=== PATIENT | male | born 1985 | race Caucasian/White ===

== ENCOUNTER 2020-07-13 13:28 | Inpatient (IN) | payer MEDICAID, SELFPAY ==
[2020-07-13 13:34] VITALS: BP 130/72; PULSE 109; RESP 18; TEMP 36.7; O2SAT 96; BMI 32.8
[2020-07-13 14:08] VITALS: BP 125/98; PULSE 120; RESP 18; TEMP 36.8; O2SAT 97
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
[2020-07-13 14:37] LABS: Basophils # 0.1 10^3/uL (0.0-0.1); Basophils % 1.2 %; Eosinophils # 0.2 10^3/uL (0.0-0.8); Eosinophils % 2.8 %; Hematocrit 52.4 % (42.0-52.0); Hemoglobin 17.4 g/dL (11.7-16.6); Lymphocytes # 1.9 10^3/uL (0.8-4.8); Lymphocytes % 24.8 %; Mean Corpuscular HGB Conc 33.2 g/dL (30.0-36.0); Mean Corpuscular Hemoglobin 29.5 pg (28.0-34.0); Mean Platelet Volume 8.5 fL (7.4-10.4); Monocytes # 0.7 10^3/uL (0.2-0.9); Monocytes % 9.8 %; Neutrophils # 4.56 10^3/uL (1.8-7.7); Nucleated Red Blood Cells % 0 %; Platelet Count 265 10^3/cmm (130-400); Red Blood Count 5.89 10^6/uL (4.1-5.3); Red Cell Distribution Width 12.6 % (12.1-15.1); White Blood Count 7.5 10^3/uL (4.0-10.0)
[2020-07-13 14:57] LABS: Alcohol Level 78 mg/dL (0-10); Anion Gap 16.9 (5-19); Blood Urea Nitrogen 8 mg/dL (6-20); Calcium 9.2 mg/dL (8.5-10.5); Carbon Dioxide 23 mmol/L (22-29); Chloride 104 mmol/L (98-107); Glomerular Filtration Rate 111.3 mL/min (90-130); Glucose 102 mg/dL (65-115); Osmolality Calculated 289 mOsm/kg (285-295); Potassium 3.9 mmol/L (3.5-5.1); Sodium 140 mmol/L (136-145)
[2020-07-13 14:59] LABS: Acetaminophen < 5.0 ug/mL (10-30); Salicylate < 0.3 mg/dL (3-10)
[2020-07-13 15:31] LABS: Add Urine Microscopic? NO
[2020-07-13 15:39] LABS: Bilirubin Urine 1+ (Negative); Blood Urine Neg (Negative); Glucose Urine UA Norm (Normal); Ketones Urine 1+ (Negative); Leukocyte Esterase Urine Negative (Negative); Nitrate Urine Negative (Negative); Protein Urine Neg (Negative); Urine Appearance Clear (CLEAR); Urine Color Yellow (Yellow); Urobilinogen Urine 1 mg/dL (Negative); pH Urine 5 (5-7)
[2020-07-13 15:42] VITALS: BP 114/80; PULSE 85; RESP 18; O2SAT 96
[2020-07-13 15:43] VITALS: BP 123/75; PULSE 91; RESP 18; TEMP 36.7; O2SAT 98
[2020-07-13 15:50] LABS: Amphetamines Screen Urine Negative (Negative); Barbiturates Screen Urine Negative (Negative); Benzodiazepines Screen Urine Negative (Negative); Cocaine Screen Urine Negative (Negative); Opiate Screen Urine Negative (Negative); PCP Screen Urine Negative (Negative); THC Screen Urine Positive (Negative)
[2020-07-13] MEDS: hyDROXYzine 25 mg Capsule 50 MG PO (20:35)
[2020-07-13] MEDS: trazodone 50 mg Tablet PO (20:35)
--- NOTE | 2020-07-13 21:52 | NUR.SHIFT ---
ON ASSESSMENT: BILATERAL LUNGS THROUGHOUT ARE CLEAR, HEART SOUNDS ARE NORMAL S1 & S2, BOWEL SOUNDS PRESENT IN ALL FOUR QUADRANTS, AT THE BEGINNING OF SHIFT THE PATIENT WAS IN HIS ROOM SLEEPING BUT HE CAME OUT OF HIS ROOM FOR A SNACK AND RETURNED TO BED.
[2020-07-13 21:57] VITALS: BP 102/62; PULSE 72; RESP 18; TEMP 36.4; O2SAT 96
[2020-07-14 06:00] VITALS: BP 112/63; PULSE 76; RESP 16; TEMP 36.6; O2SAT 97
[2020-07-14] MEDS: thiamine 100 mg Tablet PO (07:55)
[2020-07-14] MEDS: multivitamin therapeutic Tablet 1 TAB PO (07:55)
[2020-07-14] MEDS: folic acid 1 mg Tablet PO (07:55)
[2020-07-14] MEDS: nicotine 2 mg Gum BUCCAL ×4 (09:23→20:22)
[2020-07-14 13:11] VITALS: BP 127/82; PULSE 90; RESP 18; TEMP 37.1; O2SAT 98
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
[2020-07-14] MEDS: trazodone 50 mg Tablet PO (20:10)
[2020-07-14] MEDS: hyDROXYzine 25 mg Capsule 50 MG PO (20:10)
[2020-07-14 21:03] VITALS: BP 123/86; PULSE 79; RESP 22; TEMP 37.1; O2SAT 98
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
[2020-07-15 06:00] VITALS: BP 119/83; PULSE 76; RESP 18; TEMP 36.7; O2SAT 95
[2020-07-15] MEDS: nicotine 2 mg Gum BUCCAL ×5 (09:22→22:04)
[2020-07-15] MEDS: gabapentin 100 mg Capsule PO ×3 (09:55→21:31)
[2020-07-15] MEDS: thiamine 100 mg Tablet PO (09:55)
[2020-07-15] MEDS: multivitamin therapeutic Tablet 1 TAB PO (09:55)
[2020-07-15] MEDS: folic acid 1 mg Tablet PO (09:55)
--- NOTE | 2020-07-15 13:18 | PM.NPN ---
Subjective NPU Subjective: Interval history: Arvind presented today reporting that he was doing okay. We discussed getting PT involved in his treatment to see if there are any things they can recommend for him to do that he could even do at home to advance the situation. Additionally he was continuing to be agreeable with restarting his medication given that we were able to identify what they were. We discussed the risk benefits and alternatives of restarting his Zyprexa at 10 mg at the 50 mg along previously and he understood and agreed to proceed as is documented in this note. He reports that he is eating okay but sleep is still tough. Mental Status Exam MSE Comments: This is an obese white male with adequate dress grooming and eye contact. No abnormal movements except for mild psychomotor retardation. Cooperative with exam in mild distress. Speech was decreased rate and volume. Mood described as still depressed and anxious: Affect congruent. Thought process organized. Thought content: Patient denied suicidal or homicidal ideation, there were no delusions reported or noted, he denied any auditory or visual hallucinations. Attention and concentration were intact and memory was mostly reliable but none were formally tested. He is alert and oriented x3. Insight and judgment appear fair. Vitals/I&O/Wt Last Vital Signs Temp 98.5 F 07/15/20 20:26 Pulse 76 07/15/20 20:26 Resp 20 H 07/15/20 20:26 BP 118/76 07/15/20 20:26 Pulse Ox 96 07/15/20 20:26 Data NPU : 07/13/20 14:25 07/13/20 14:25 A&P Additional A&P Information (1) TBI (traumatic brain injury): (2) Depression: (3) Impulse control disorder, unspecified: (4) Suicidal ideation: (5) Alcohol use disorder: This is a 35-year-old white male with depression and impulse control issues with a recent TBI with significant sequela who presents off of his medication but open to having his medications restarted. 1. Continue current medication. Except restart his previous medications including Zyprexa 10 mg p.o. nightly. We also discussed the risk benefits and alternatives of starting ReVia 50 mg p.o. daily and he understood and agreed to proceed as is documented in this note. 2. Continue every 15 minute checks for safety. 3. Encourage individual complement therapy. 4. Encourage sober living treatment at the highest level of care to which he is willing to commit. 5. Initiate PT consult. Involuntary Hold Information 96 Hour Hold: 96 Hour Involuntary Admission: No Attestations NPU Medical Necessity Statement*: Inpatient hospitalization is medically necessary and the clinically appropriate intervention at this time. We will monitor medications and make changes as indicated. Likely length of stay 2-4 days. 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
[2020-07-15] MEDS: naltrexone hcl 50 mg Tablet PO (13:59)
[2020-07-15 14:00] VITALS: BP 120/67; PULSE 75; RESP 20; TEMP 36.5; O2SAT 97
[2020-07-15 20:26] VITALS: BP 118/76; PULSE 76; RESP 20; TEMP 36.9; O2SAT 96
[2020-07-15] MEDS: OLANZapine 10 mg TABLET PO (21:30)
[2020-07-15] MEDS: hyDROXYzine 25 mg Capsule 50 MG PO (21:30)
--- NOTE | 2020-07-16 03:48 | NUR.SHIFT ---
Patient is depressed today. He says that his stomach feels bloated and that he is on the verge of shaking. He is craving alcohol and fears that he will relapse. He stated that he is withdrawing still from the alcohol. He says the voices in his head sound like they are arguing loudly. He has been having headaches and when he has thoughts that wont stop or a thought to do something that the voices answer his own internal thoughts. He asked for trazodone to help him sleep tonight, visteril, and zyprexa to help with his anxiety. He has been resting soundly since he received medication.
[2020-07-16 06:00] VITALS: BP 103/67; PULSE 97; RESP 17; TEMP 36.6; O2SAT 61
[2020-07-16] MEDS: folic acid 1 mg Tablet PO (09:56)
[2020-07-16] MEDS: gabapentin 100 mg Capsule PO ×3 (09:56→20:54)
[2020-07-16] MEDS: thiamine 100 mg Tablet PO (09:56)
[2020-07-16] MEDS: multivitamin therapeutic Tablet 1 TAB PO (09:56)
[2020-07-16] MEDS: naltrexone hcl 50 mg Tablet PO (09:56)
--- NOTE | 2020-07-16 10:30 | P.PN_ITS ---
Subjective NPU Subjective: Interval history: Arvind presented today reporting that he feels a little better but that he is still depressed. We reviewed what antidepressants he is tried in the past and he endorsed only having Prozac and Effexor with limited benefit. We discussed the risk benefits and alternatives of a trial of Paxil and he understood and agreed to proceed as documented in th is note. He endorsed a desire to get well enough to get back to work and that he has a place to go upon discharge. He reports that he is eating okay and sleeping a little better. Mental Status Exam MSE Comments: This is an obese white male with adequate dress grooming and eye contact. No abnormal movements except for mild psychomotor retardation. Cooperative with exam in mild distress. Speech was decreased rate and volume. Mood described as still depressed: Affect congruent. Thought process organized. Thought content: Patient denied suicidal or homicidal ideation, there were no delusions reported or noted, he denied any auditory or visual hallucinations. Attention and concentration were intact and memory was mostly reliable but none were formally tested. He is alert and oriented x3. Insight and judgment appear fair. Vitals/I&O/Wt Last Vital Signs Temp 97.8 F 07/16/20 06:00 Pulse 97 07/16/20 06:00 Resp 17 07/16/20 06:00 BP 103/67 07/16/20 06:00 Pulse Ox 61 L 07/16/20 06:00 Data NPU : 07/13/20 14:25 07/13/20 14:25 A&P Additional A&P Information (1) TBI (traumatic brain injury): (2) Depression: (3) Impulse control disorder, unspecified: (4) Suicidal ideation: (5) Alcohol use disorder: This is a 35-year-old white male with depression and impulse control issues with a recent TBI with significant sequela who presents off of his medication but open to having his medications restarted. 1. Continue current medication. Except: Increasing the Zyprexa to 15 mg p.o. nightly and starting Paxil 20 mg p.o. every morning. 2. Continue every 15 minute checks for safety. 3. Encourage individual complement therapy. 4. Encourage sober living treatment at the highest level of care to which he is willing to commit. 5. Appreciate the OT consult and recommendations. Involuntary Hold Information 96 Hour Hold: 96 Hour Involuntary Admission: No Attestations NPU Medical Necessity Statement*: Inpatient hospitalization is medically necessary and the clinically appropriate intervention at this time. We will monitor medications and make changes as indicated. Likely length of stay 1-3 days. 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
[2020-07-16] MEDS: nicotine 2 mg Gum BUCCAL ×2 (11:07→16:37)
[2020-07-16 14:00] VITALS: BP 136/80; PULSE 78; RESP 16; TEMP 36.7; O2SAT 98
[2020-07-16] MEDS: PARoxetine 20 mg Tablet PO (14:57)
[2020-07-16] MEDS: hyDROXYzine 25 mg Capsule 50 MG PO (20:53)
[2020-07-16] MEDS: ondansetron 4 MG Tablet PO (20:54)
[2020-07-16] MEDS: OLANZapine 10 mg TABLET 15 MG PO (20:55)
[2020-07-16 21:11] VITALS: BP 119/80; PULSE 61; RESP 18; TEMP 36.3; O2SAT 94
[2020-07-17 06:00] VITALS: BP 139/70; PULSE 66; RESP 16; TEMP 36.3
[2020-07-17] MEDS: gabapentin 100 mg Capsule PO ×3 (08:23→21:23)
[2020-07-17] MEDS: multivitamin therapeutic Tablet 1 TAB PO (08:23)
[2020-07-17] MEDS: thiamine 100 mg Tablet PO (08:23)
[2020-07-17] MEDS: naltrexone hcl 50 mg Tablet PO (08:23)
[2020-07-17] MEDS: PARoxetine 20 mg Tablet PO (08:23)
[2020-07-17] MEDS: folic acid 1 mg Tablet PO (08:23)
[2020-07-17] MEDS: nicotine 2 mg Gum BUCCAL ×2 (10:22→18:08)
--- NOTE | 2020-07-17 10:41 | P.PN_ITS ---
Subjective NPU Subjective: Interval history: Wood presents today reporting that things are going a little better each day. We discussed his depression which he says is a little better. He endorsed having some struggles with constipation and we discussed the risk benefits and alternatives of initiating Colace and he understood and agreed to proceed as is documented in his note. We also di scussed the possibility of discharge in the next 48 hours. Mental Status Exam MSE Comments: This is an obese white male with adequate dress grooming and eye contact. No abnormal movements except for mild psychomotor retardation. Cooperative with exam in mild distress. Speech was decreased rate and volume. Mood described as little better: Affect congruent. Thought process organized. Thought content: Patient denied suicidal or homicidal ideation, there were no delusions reported or noted, he denied any auditory or visual hallucinations. Attention and concentration were intact and memory was mostly reliable but none were formally tested. He is alert and oriented x3. Insight and judgment appear fair. Vitals/I&O/Wt Last Vital Signs Temp 98.3 F 07/17/20 22:00 Pulse 76 07/17/20 22:00 Resp 18 07/17/20 22:00 BP 121/72 07/17/20 22:00 Pulse Ox 97 07/17/20 22:00 Data NPU : 07/13/20 14:25 07/13/20 14:25 A&P Additional A&P Information (1) TBI (traumatic brain injury): (2) Depression: (3) Impulse control disorder, unspecified: (4) Suicidal ideation: (5) Alcohol use disorder: This is a 35-year-old white male with depression and impulse control issues with a recent TBI with significant sequela who presents off of his medication but open to having his medications restarted. 1. Continue current medication. Start Colace 100 mg p.o. daily. 2. Continue every 15 minute checks for safety. 3. Encourage individual complement therapy. 4. Encourage sober living treatment at the highest level of care to which he is willing to commit. 5. Appreciate the OT consult and recommendations. Involuntary Hold Information 96 Hour Hold: 96 Hour Involuntary Admission: No Attestations NPU Medical Necessity Statement*: Inpatient hospitalization is medically necessary and the clinically appropriate intervention at this time. We will monitor medications and make changes as indicated. Likely length of stay 1-3 days. 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
[2020-07-17 14:00] VITALS: BP 123/68; PULSE 80; RESP 16; TEMP 36.9; O2SAT 95
[2020-07-17] MEDS: hyDROXYzine 25 mg Capsule 50 MG PO (21:23)
[2020-07-17] MEDS: OLANZapine 10 mg TABLET 15 MG PO (21:23)
[2020-07-17 22:00] VITALS: BP 121/72; PULSE 76; RESP 18; TEMP 36.8; O2SAT 97
[2020-07-17] MEDS: acetaminophen 325 mg Tablet 650 MG PO (22:20)
[2020-07-17] MEDS: benzocaine 20% 7 gm 1 APPLIC MUCOUS MEM (23:02)
--- NOTE | 2020-07-17 23:27 | PC.NURSE ---
Addendum entered by Jayy Espinoza LPN 07/17/20 23:29: LATE ENTRY PRN FOLLOW-UP @ 0573 MEDICATION NOT EFFECTIVE. PT CONTINUES TO HAVE C/O ANXIETY. REFUSED ADDITIONAL MEDICATION. WILL CONTINUE TO MONITOR. Original Note: PRN VISTARIL ADMINISTERED VISTARIL 50MG PO FOR PT CO INCREASING ANXIETY. WILL MONITOR FOR MEDICATION EFFECTIVENESS.
[2020-07-18 06:00] VITALS: BP 134/72; PULSE 86; RESP 17; TEMP 36.5; O2SAT 99
[2020-07-18] MEDS: multivitamin therapeutic Tablet 1 TAB PO (08:40)
[2020-07-18] MEDS: docusate sodium 100 mg Capsule PO (08:40)
[2020-07-18] MEDS: naltrexone hcl 50 mg Tablet PO (08:40)
[2020-07-18] MEDS: gabapentin 100 mg Capsule PO ×3 (08:40→20:47)
[2020-07-18] MEDS: thiamine 100 mg Tablet PO (08:40)
[2020-07-18] MEDS: folic acid 1 mg Tablet PO (08:40)
[2020-07-18] MEDS: PARoxetine 20 mg Tablet PO (08:40)
--- NOTE | 2020-07-18 09:10 | PM.NPN ---
Subjective NPU Subjective: Interval history: Wood presents today reporting that he is feeling little better each day. We discussed the importance of coming connected with services. We discussed risks cuts and alternatives of him being discharged on Monday morning and he understood and agreed as documented in his note. He reports that he is tolerating the medications without incident and feeling a little better overall. Mental Status Exam MSE Comments: This is an obese white male with adequate dress grooming and eye contact. No abnormal movements except for mild psychomotor retardation. Cooperative with exam in no acute distress. Speech was normal rate and decreased volume. Mood described as okay: Affect congruent. Thought process organized. Thought content: Patient denied suicidal or homicidal ideation, there were no delusions reported or noted, he denied any auditory or visual hallucinations. Attention and concentration were intact and memory was mostly reliable but none were formally tested. He is alert and oriented x3. Insight and judgment appear fair. Vitals/I&O/Wt Last Vital Signs Temp 98.8 F 07/18/20 21:04 Pulse 97 07/18/20 21:04 Resp 18 07/18/20 21:04 BP 138/93 07/18/20 21:04 Pulse Ox 97 07/18/20 21:04 Weight last 48 hrs Weight 74.843 kg Data NPU : 07/13/20 14:25 07/13/20 14:25 A&P Additional A&P Information (1) TBI (traumatic brain injury): (2) Depression: (3) Impulse control disorder, unspecified: (4) Suicidal ideation: (5) Alcohol use disorder: This is a 35-year-old white male with depression and impulse control issues with a recent TBI with significant sequela who presents off of his medication but open to having his medications restarted. 1. Continue current medication. 2. Continue every 15 minute checks for safety. 3. Encourage individual complement therapy. 4. Encourage sober living treatment at the highest level of care to which he is willing to commit. 5. Appreciate the OT consult and recommendations. Involuntary Hold Information 96 Hour Hold: 96 Hour Involuntary Admission: No Attestations NPU Medical Necessity Statement*: Inpatient hospitalization is medically necessary and the clinically appropriate intervention at this time. We will monitor medications and make changes as indicated. Likely length of stay 1-3 days. 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
[2020-07-18] MEDS: nicotine 2 mg Gum BUCCAL ×3 (11:55→20:47)
[2020-07-18 14:00] VITALS: BP 104/73; PULSE 86; RESP 18; TEMP 37.4
[2020-07-18] MEDS: benzocaine 20% 7 gm 1 APPLIC MUCOUS MEM ×2 (17:04→20:51)
[2020-07-18] MEDS: OLANZapine 10 mg TABLET 15 MG PO (20:48)
[2020-07-18] MEDS: hyDROXYzine 25 mg Capsule 50 MG PO (20:49)
--- NOTE | 2020-07-18 20:49 | PC.NURSE ---
Addendum entered by Jayy Espinoza LPN 07/19/20 00:46: LATE ENTRY PRN MEDICATION EFFECTIVE/ PT RESTING IN BED W/EYES CLOSED RR EVEN AND UNLABORED. WILL CONTINUE TO MONITOR. Original Note: PRN VISTARIL ADMINISTERED VISTARIL 50MG PO FOR PT C/O ANXIETY. WILL MONITOR FOR MEDICATION EFFECTIVENESS.
[2020-07-18] MEDS: acetaminophen 325 mg Tablet 650 MG PO (20:50)
[2020-07-18 21:04] VITALS: BP 138/93; PULSE 97; RESP 18; TEMP 37.1; O2SAT 97
[2020-07-19 06:00] VITALS: BP 153/84; PULSE 73; RESP 17; TEMP 36.6; O2SAT 98
[2020-07-19] MEDS: docusate sodium 100 mg Capsule PO (08:12)
[2020-07-19] MEDS: PARoxetine 20 mg Tablet PO (08:12)
[2020-07-19] MEDS: naltrexone hcl 50 mg Tablet PO (08:12)
[2020-07-19] MEDS: thiamine 100 mg Tablet PO (08:13)
[2020-07-19] MEDS: gabapentin 100 mg Capsule PO ×3 (08:13→20:21)
[2020-07-19] MEDS: folic acid 1 mg Tablet PO (08:13)
[2020-07-19] MEDS: multivitamin therapeutic Tablet 1 TAB PO (08:13)
[2020-07-19] MEDS: nicotine 2 mg Gum BUCCAL ×4 (08:15→21:25)
--- NOTE | 2020-07-19 11:28 | P.PN_ITS ---
Subjective NPU Subjective: Interval history: Arvind presented today reporting that he is feeling a little better. He feels the OT has been helpful and he is interested in continuing that on an outpatient basis if possible. We discussed the risk benefits and alternatives of discharging home tomorrow with the assistance of the treatment team and he understood and agreed to proceed as is documented in this note. He reports that he is having less negativity and negative. And reports that he is eating and sleeping better. Mental Status Exam MSE Comments: This is an obese white male with adequate dress grooming and eye contact. No abnormal movements except for mild psychomotor retardation. C ooperative with exam in no acute distress. Speech was normal rate and decreased volume. Mood described as feeling more ready: Affect congruent. Thought process organized. Thought content: Patient denied suicidal or homicidal ideation, there were no delusions reported or noted, he denied any auditory or visual hallucinations. Attention and concentration were intact and memory was mostly reliable but none were formally tested. He is alert and oriented x3. Insight and judgment appear fair. Vitals/I&O/Wt Last Vital Signs Temp 97.8 F 07/19/20 06:00 Pulse 73 07/19/20 06:00 Resp 17 07/19/20 06:00 BP 153/84 07/19/20 06:00 Pulse Ox 98 07/19/20 06:00 Weight last 48 hrs Weight 74.843 kg Data NPU : 07/13/20 14:25 07/13/20 14:25 A&P Additional A&P Information (1) TBI (traumatic brain injury): (2) Depression: (3) Impulse control disorder, unspecified: (4) Suicidal ideation: (5) Alcohol use disorder: This is a 35-year-old white male with depression and impulse control issues with a recent TBI with significant sequela who presents off of his medication but open to having his medications restarted. 1. Continue current medication. 2. Continue every 15 minute checks for safety. 3. Encourage individual complement therapy. 4. Encourage sober living treatment at the highest level of care to which he is willing to commit. 5. Appreciate the OT consult and recommendations. Involuntary Hold Information 96 Hour Hold: 96 Hour Involuntary Admission: No Attestations NPU Medical Necessity Statement*: Inpatient hospitalization is medically necessary and the clinically appropriate intervention at this time. We will monitor medications and make changes as indicated. Likely length of stay 1-2 days. Tentative plan for discharge in the morning. 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
[2020-07-19 13:16] VITALS: BP 109/19; PULSE 86; RESP 19; TEMP 36.9
[2020-07-19] MEDS: hyDROXYzine 25 mg Capsule 50 MG PO (20:21)
[2020-07-19] MEDS: OLANZapine 10 mg TABLET 15 MG PO (20:21)
[2020-07-19 20:53] VITALS: BP 135/85; PULSE 86; RESP 17; TEMP 37; O2SAT 96
--- NOTE | 2020-07-19 21:31 | PC.NURSE ---
Pt given scheduled gabapentin and zyprexa as well as requested vistaril per pt request.
[2020-07-20 06:00] VITALS: BP 129/82; PULSE 60; RESP 14; TEMP 36.7; O2SAT 98
[2020-07-20] MEDS: PARoxetine 20 mg Tablet PO (07:47)
[2020-07-20] MEDS: thiamine 100 mg Tablet PO (07:47)
[2020-07-20] MEDS: gabapentin 100 mg Capsule PO (07:48)
[2020-07-20] MEDS: multivitamin therapeutic Tablet 1 TAB PO (07:48)
[2020-07-20] MEDS: naltrexone hcl 50 mg Tablet PO (07:48)
[2020-07-20] MEDS: folic acid 1 mg Tablet PO (07:48)
[2020-07-20] MEDS: docusate sodium 100 mg Capsule PO (07:48)
[2020-07-20] MEDS: nicotine 2 mg Gum BUCCAL ×2 (09:47→14:03)
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
[2020-07-20 10:37] VITALS: BP 129/82; PULSE 60; RESP 14; TEMP 36.7; O2SAT 98
== END 2020-07-20 16:19 | disposition home or self-care (01) | DRG 881 ==
LOC: ER 15:25 → NP 15:36
PROVIDERS: Nurse Practitioner Family; Admitting Provider Psychiatry & Neurology Psychiatry; Visit Provider Psychiatry & Neurology Psychiatry
DX: F32.9 Major depressive disorder, single episode, unspecified (principal); R45.851 Suicidal ideations; F12.20 Cannabis dependence, uncomplicated; Z87.820 Personal history of traumatic brain injury; F10.20 Alcohol dependence, uncomplicated; F63.9 Impulse disorder, unspecified; G89.29 Other chronic pain; M54.9 Dorsalgia, unspecified; Z91.5 Personal history of self-harm; F17.210 Nicotine dependence, cigarettes, uncomplicated
CPT/HCPCS: 12345; 36415; 80048; 80306; 80307; 81003; 85025; 97110; 97166; 99284; Q0162

== ENCOUNTER 2020-07-24 11:55 | Inpatient (IN) | payer MEDICAID, SELFPAY ==
[2020-07-24 12:08] VITALS: BP 124/77; PULSE 104; RESP 18; TEMP 36.8; O2SAT 91; BMI 31.8
[2020-07-24 12:43] LABS: Basophils # 0.1 10^3/uL (0.0-0.1); Basophils % 1.2 %; Eosinophils # 0.3 10^3/uL (0.0-0.8); Eosinophils % 3.6 %; Hematocrit 54.3 % (42.0-52.0); Lymphocytes # 2.7 10^3/uL (0.8-4.8); Lymphocytes % 30.3 %; Mean Corpuscular HGB Conc 33.1 g/dL (30.0-36.0); Mean Corpuscular Hemoglobin 29.6 pg (28.0-34.0); Mean Corpuscular Volume 89.2 fL (80-94); Mean Platelet Volume 8.2 fL (7.4-10.4); Monocytes # 0.8 10^3/uL (0.2-0.9); Monocytes % 9.3 %; Neutrophils # 4.93 10^3/uL (1.8-7.7); Neutrophils % 55.3 %; Nucleated Red Blood Cells % 0 %; Platelet Count 254 10^3/cmm (130-400); Red Blood Count 6.09 10^6/uL (4.1-5.3); Red Cell Distribution Width 12.1 % (12.1-15.1); White Blood Count 8.9 10^3/uL (4.0-10.0)
--- NOTE | 2020-07-24 12:43 | W.ED.PSYCH ---
HPI - Psych General: Chief Complaint: Psychiatric Symptoms Stated Complaint: HEARING VOICES Time Seen by Provider: 07/24/20 12:17 Source: patient Mode of arrival: ambulatory Limitations: no limitations History of Present Illness: HPI Narrative: 35 yo male patient presents to ER stating he is depressed, wants to kill himself and is hearing voices that tell him to kill himself. Pt states he has a plan to get really drunk and lay on railroad tracks and get hit by a train. Pt states he stopped his meds a few weeks ago due to finances. 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 Pt denies any substance use. MD complaint: suicidal ideation and feels depressed Duration: getting worse History of same: Yes Relieving factors: none Exacerbating factors: none Context: recent alcohol abuse and not taking psychiatric medications Associated psychiatric symptoms: depression, suicidal ideation and auditory hallucinations Associated symptoms: Reports auditory hallucinations, depression and suicidal ideation Treatments prior to arrival: none If self harm: admits thoughts of self harm and has plan Review of Systems General: Reports: 10 or more systems reviewed and unremarkable except in HPI and below Const: Denies: fever(s) or chills Eyes: Denies: change in vision or blurry vision ENMT: Denies: throat pain, odynophagia or dental pain Card: Denies: chest pain, palpitations, irregular heart rhythm, swelling of feet/ankles, lightheadedness or syncope Resp: Denies: dyspnea, productive cough, non-productive cough or wheezing GI: Denies: abdominal pain, nausea, vomiting or diarrhea : Denies: flank pain, difficulty urinating, dysuria, urinary frequency, urinary urgency or urinary hesitancy Musc: Denies: neck pain, back pain or extremity pain Neuro: Denies: headache(s), numbness in extremities or weakness in extremities Psych: Reports: depression, auditory hallucinations and suicidal ideation Physical Exam Const: COMMON NORMALS: no acute distress, average body habitus, patient oriented x3, no limitations, healthy appearing, alert and well nourished HENMT: COMMON NORMALS: normocephalic, atraumatic, hearing grossly normal bilaterally, external ears normal, EAC's normal, TM's normal bilaterally, Normal external nose present, Normal nasal mucous membranes and turbinates present, moist oral mucous membranes, oropharynx normal, dentition normal and gingiva normal HEAD & SCALP: normocephalic and atraumatic NOSE: Normal external nose present and Normal nasal mucous membranes and turbinates present EXTERNAL EAR: Yes external ears normal EXTERNAL AUDITORY CANAL: EAC's normal TYMPANIC MEMBRANE: TM's normal bilaterally Eye: COMMON NORMALS: Equal, round and reactive pupils present, EOMs intact bilaterally, conjunctivae normal, no scleral icterus, no papilledema, normal visual wilson by confrontation and fundi normal bilaterally CONJUNCTIVA: Yes conjunctivae normal PUPIL: Yes Equal, round and reactive pupils present DIRECT OPHTHALMOSCOPY: Yes no papilledema and Yes fundi normal bilaterally Neck/C-Spine: COMMON NORMALS: full ROM, no lymphadenopathy, supple, no meningeal signs, no JVD, Thyroid normal and No carotid bruits THYROID: Thyroid normal Lymph: LYMPHATIC: no lymphadenopathy noted Chest: COMMONS NORMALS: normal inspection of the chest, normal palpation of entire chest wall, normal inspection of the breasts and normal palpation of the breasts Resp: COMMON NORMALS: normal respiratory effort, No retractions, No use of accessory muscles, clear to auscultation bilaterally and percussion normal AUSCULTATION: clear to auscultation bilaterally PERCUSSION: percussion normal Cardio: COMMON NORMALS: no JVD, regular rate, regular rhythm, S1 normal heart sound present, S2 normal heart sound present, No gallops present (Cardio), No clicks present (Cardio), No murmurs present (Cardio), No rub (Cardio) and Peripheral pulses 2+ throughout RATE: regular rate RHYTHM: regular rhythm HEART SOUNDS: S1 normal heart sound present and S2 normal heart sound present PERIPHERAL PULSES: Peripheral pulses 2+ throughout GI: COMMON NORMALS: Normal to inspection, nondistended, normoactive bowel sounds present, Soft to palpation, non-tender, No hepatosplenomegaly present, no masses and no bruits PALPATION: Yes Soft to palpation and Yes No hepatosplenomegaly present : COMMON NORMALS: Yes no CVA tenderness BLADDER/KIDNEY EXAM: Yes no CVA tenderness Back/Pelvis: COMMON NORMALS: no CVA tenderness, thoracic and lumbar spine normal to inspection, no thoracic nor lumbar tenderness, thoraco-lumbar ROM normal and straight leg raise negative bilaterally Extremity: COMMON NORMALS: normal to inspection, full ROM, capillary refill normal, no joint enlargement, no clubbing, cyanosis or edema, no calf tenderness and no pedal edema Neuro: COMMON NORMALS: patient oriented x3, CN's II-XII intact bilaterally, moves all extremities, no focal motor deficits, no sensory deficits noted, deep tendon reflexes 2+ bilaterally and gait normal SENSORIUM/ORIENTATION: Yes alert MENINGEAL SIGNS: Yes no meningeal signs Psych: COMMON NORMALS: speech normal; negative for Normal thought process present, negative for denies hallucinations, negative for denies homicidal ideation and negative for denies suicidal ideation ATTITUDE: Yes calm and Yes Withdrawn affect present ACTIVITY/MOTOR BEHAVIOR: No appropriate eye contact SPEECH: Yes normal speech MOOD & AFFECT: Yes depressed mood THOUGHT PROCESS: abnormal THOUGHT CONTENT: No Normal thought content present, Yes Suicidality present and Yes Hallucination(s) present auditory MDM - Psych MDM Narrative: Medical decision making narrative: Pt is suicidal with a plan with auditory hallucinations. Pt is non compliant with meds. Pt is deemed a threat to himself. Labd do not reveal any concerning findings. I will plan on admit patient to [facility] at this time Differential Diagnosis: Psych Differential Diagnosis: Likely acute psychosis, chronic schizophrenia, suicidal ideation and bipolar disorder Lab Data: Labs: Lab Results 07/24/20 07/24/20 07/24/20 Range/Units 12:36 12:36 12:39 WBC 8.9 (4.0-10.0) 10^3/ uL RBC 6.09 H (4.1-5.3) 10^6/u L Hgb 18.0 H (11.7-16.6) g/dL Hct 54.3 H (42.0-52.0) % MCV 89.2 (80-94) fL MCH 29.6 (28.0-34.0) pg MCHC 33.1 (30.0-36.0) g/dL RDW 12.1 (12.1-15.1) % Plt Count 254 (130-400) 10^3/c mm MPV 8.2 (7.4-10.4) fL Neut % (Auto) 55.3 % Lymph % (Auto) 30.3 % Pima % (Auto) 9.3 % Eos % (Auto) 3.6 % Baso % (Auto) 1.2 % Neut # (Auto) 4.93 (1.8-7.7) 10^3/u L Lymph # (Auto) 2.7 (0.8-4.8) 10^3/u L Pima # (Auto) 0.8 (0.2-0.9) 10^3/u L Eos # (Auto) 0.3 (0.0-0.8) 10^3/u L Baso # (Auto) 0.1 (0.0-0.1) 10^3/u L Nucleated RBC % (a uto) 0 % Nucleated RBCs # 0.0 /100WBC Sodium (136-145) mmol/L Potassium (3.5-5.1) mmol/L Chloride (98-107) mmol/L Carbon Dioxide (22-29) mmol/L Anion Gap (5-19) BUN (6-20) mg/dL Creatinine (0.7-1.2) mg/dL GFR Calculation (90-130) mL/min Glucose (65-115) mg/dL Calculated Osmolal ity (285-295) mOsm/k g Calcium (8.5-10.5) mg/dL Total Bilirubin (0.15-1.2) mg/dL AST (0-40) U/L ALT (0-41) U/L Alkaline Phosphata se (40-130) IU/L Total Protein (6.6-8.7) g/dL Albumin (3.5-5.2) g/dL Globulin (1.3-4.6) g/dL TSH (0.27-4.20) uIU/ mL Urine Color Straw (Yellow) Urine Appearance Clear (CLEAR) Urine pH 5 (5-7) Ur Specific Gravit y 1.000 L (1.005-1.030) Urine Protein Neg (Negative) Urine Glucose (UA) Norm (Normal) Urine Ketones Negative (Negative) Urine Blood Neg (Negative) Urine Nitrate Negative (Negative) Urine Bilirubin Neg (Negative) Urine Urobilinogen Norm (Negative) mg/dL Ur Leukocyte Elena ase Negative (Negative) Salicylates (3-10) mg/dL Urine Opiates Scre en Negative (Negative) ng/mL Acetaminophen (10-30) ug/mL Ur Barbiturates Sc reen Negative (Negative) ng/mL Ur Phencyclidine S crn Negative (Negative) ng/mL Ur Amphetamines Sc reen Negative (Negative) ng/mL U Benzodiazepines Scrn Negative (Negative) ng/mL Urine Cocaine Scre en Negative (Negative) ng/mL U Marijuana (THC) Screen Positive H (Negative) ng/mL Ethyl Alcohol (0-10) mg/dL 07/24/20 Range/Units 12:39 WBC (4.0-10.0) 10^3/ uL RBC (4.1-5.3) 10^6/u L Hgb (11.7-16.6) g/dL Hct (42.0-52.0) % MCV (80-94) fL MCH (28.0-34.0) pg MCHC (30.0-36.0) g/dL RDW (12.1-15.1) % Plt Count (130-400) 10^3/c mm MPV (7.4-10.4) fL Neut % (Auto) % Lymph % (Auto) % Pima % (Auto) % Eos % (Auto) % Baso % (Auto) % Neut # (Auto) (1.8-7.7) 10^3/u L Lymph # (Auto) (0.8-4.8) 10^3/u L Pima # (Auto) (0.2-0.9) 10^3/u L Eos # (Auto) (0.0-0.8) 10^3/u L Baso # (Auto) (0.0-0.1) 10^3/u L Nucleated RBC % (a uto) % Nucleated RBCs # /100WBC Sodium 140 (136-145) mmol/L Potassium 3.8 (3.5-5.1) mmol/L Chloride 107 (98-107) mmol/L Carbon Dioxide 19 L (22-29) mmol/L Anion Gap 17.8 (5-19) BUN 7 (6-20) mg/dL Creatinine 0.7 (0.7-1.2) mg/dL GFR Calculation 129.9 (90-130) mL/min Glucose 109 (65-115) mg/dL Calculated Osmolal ity 289 (285-295) mOsm/k g Calcium 8.9 (8.5-10.5) mg/dL Total Bilirubin 0.6 (0.15-1.2) mg/dL AST 82 H (0-40) U/L ALT 122 H (0-41) U/L Alkaline Phosphata se 124 (40-130) IU/L Total Protein 7.6 (6.6-8.7) g/dL Albumin 4.7 (3.5-5.2) g/dL Globulin 2.9 (1.3-4.6) g/dL TSH 0.95 (0.27-4.20) uIU/ mL Urine Color (Yellow) Urine Appearance (CLEAR) Urine pH (5-7) Ur Specific Gravit y (1.005-1.030) Urine Protein (Negative) Urine Glucose (UA) (Normal) Urine Ketones (Negative) Urine Blood (Negative) Urine Nitrate (Negative) Urine Bilirubin (Negative) Urine Urobilinogen (Negative) mg/dL Ur Leukocyte Elena ase (Negative) Salicylates < 0.3 L (3-10) mg/dL Urine Opiates Scre en (Negative) ng/mL Acetaminophen < 5.0 L (10-30) ug/mL Ur Barbiturates Sc reen (Negative) ng/mL Ur Phencyclidine S crn (Negative) ng/mL Ur Amphetamines Sc reen (Negative) ng/mL U Benzodiazepines Scrn (Negative) ng/mL Urine Cocaine Scre en (Negative) ng/mL U Marijuana (THC) Screen (Negative) ng/mL Ethyl Alcohol 275 H (0-10) mg/dL Discharge Plan Discharge Prescriptions: No Action naltrexone 50 mg Tablet 50 mg PO DAILY Qty: 30 RF: 4 paroxetine HCl 20 mg Tablet 20 mg PO DAILY Qty: 30 RF: 4 docusate sodium 100 mg Capsule 100 mg PO DAILY Qty: 30 RF: 0 folic acid 1 mg Tablet 1 mg PO DAILY Qty: 30 RF: 0 thiamine mononitrate (vit B1) [Vitamin B-1 (mononitrate)] 100 mg Tablet 100 mg PO DAILY Qty: 30 RF: 0 Thera 400 mcg Tablet 1 tab PO DAILY Qty: 30 RF: 0 olanzapine [Zyprexa] 5 mg Tablet 15 mg PO BEDTIME Qty: 30 RF: 4 gabapentin 100 mg Capsule 100 mg PO TID Qty: 90 RF: 4 Benadryl 25 mg Capsule 75 mg PO BEDTIME PRN (Reason: Sleep) RF: 0 Coding Level of Care Code ED Pocket Closer for Chg Fwd Exam Comprehensive
[2020-07-24 13:01] VITALS: RESP 18
[2020-07-24 13:03] LABS: Add Urine Microscopic? NO
[2020-07-24 13:07] LABS: Bilirubin Urine Neg (Negative); Blood Urine Neg (Negative); Glucose Urine UA Norm (Normal); Ketones Urine Negative (Negative); Leukocyte Esterase Urine Negative (Negative); Nitrate Urine Negative (Negative); Protein Urine Neg (Negative); Urine Appearance Clear (CLEAR); Urine Color Straw (Yellow); Urobilinogen Urine Norm (Negative); pH Urine 5 (5-7)
[2020-07-24 13:14] LABS: Alanine Aminotransferase 122 U/L (0-41); Albumin Level 4.7 g/dL (3.5-5.2); Alcohol Level 275 mg/dL (0-10); Alkaline Phosphatase 124 IU/L (40-130); Anion Gap 17.8 (5-19); Aspartate Amino Transferase 82 U/L (0-40); Blood Urea Nitrogen 7 mg/dL (6-20); Calcium 8.9 mg/dL (8.5-10.5); Carbon Dioxide 19 mmol/L (22-29); Chloride 107 mmol/L (98-107); Globulin 2.9 g/dL (1.3-4.6); Glomerular Filtration Rate 129.9 mL/min (90-130); Glucose 109 mg/dL (65-115); Osmolality Calculated 289 mOsm/kg (285-295); Potassium 3.8 mmol/L (3.5-5.1); Sodium 140 mmol/L (136-145); Thyroid Stimulating Hormone 0.95 uIU/mL (0.27-4.20); Total Bilirubin 0.6 mg/dL (0.15-1.2); Total Protein 7.6 g/dL (6.6-8.7)
[2020-07-24 13:15] LABS: Acetaminophen < 5.0 ug/mL (10-30); Salicylate < 0.3 mg/dL (3-10)
[2020-07-24 13:16] LABS: Amphetamines Screen Urine Negative (Negative); Barbiturates Screen Urine Negative (Negative); Benzodiazepines Screen Urine Negative (Negative); Cocaine Screen Urine Negative (Negative); Opiate Screen Urine Negative (Negative); PCP Screen Urine Negative (Negative); THC Screen Urine Positive (Negative)
[2020-07-24 15:12] VITALS: BP 108/70; PULSE 109; RESP 20; TEMP 36.7; O2SAT 95
[2020-07-24] MEDS: nicotine 2 mg Gum BUCCAL ×2 (16:46→20:29)
[2020-07-24 19:47] VITALS: BP 124/79; PULSE 79; RESP 17; TEMP 37.1; O2SAT 93
[2020-07-24] MEDS: trazodone 50 mg Tablet PO (22:01)
[2020-07-24] MEDS: OLANZapine 5 mg TABLET 15 MG PO (22:01)
[2020-07-24] MEDS: hyDROXYzine 25 mg Capsule 50 MG PO (22:02)
--- NOTE | 2020-07-25 04:29 | PC.NURSE ---
trazodone/visteril/Nicotine gum Trazodone 50mg po given for sleep Visteril 50mg Po given for anxiety nicotine gum Result: patient is not anxious and is resting.
[2020-07-25 06:00] VITALS: BP 125/66; PULSE 72; RESP 16; TEMP 36.6; O2SAT 99
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
[2020-07-25] MEDS: multivitamin therapeutic Tablet 1 TAB PO (09:08)
[2020-07-25] MEDS: docusate sodium 100 mg Capsule PO (09:08)
[2020-07-25] MEDS: thiamine 100 mg Tablet PO (09:08)
[2020-07-25] MEDS: PARoxetine 20 mg Tablet PO (09:09)
[2020-07-25] MEDS: nicotine 2 mg Gum BUCCAL ×4 (10:10→20:39)
[2020-07-25] MEDS: folic acid 1 mg Tablet PO (13:24)
[2020-07-25 13:40] VITALS: BP 121/75; PULSE 86; RESP 18; TEMP 37
[2020-07-25] MEDS: OLANZapine 5 mg TABLET 15 MG PO (20:39)
[2020-07-25] MEDS: hyDROXYzine 25 mg Capsule 50 MG PO (20:39)
[2020-07-25] MEDS: trazodone 50 mg Tablet PO (20:40)
--- NOTE | 2020-07-25 21:07 | PC.NURSE ---
Addendum entered by Lucrecia Betts RN 07/30/20 04:51: Pt responded well to medication. He no longer anxious and slept the entire evening. Original Note: PRN TRAZODONE & VISTARIL ADMINISTERED TRAZODONE 50 MG PER PT REQUEST FOR SLEEP AID & VISTARIL 50 MG FOR PT C/O OF ANXIETY. WILL MONITOR FOR MEDICATION EFFECTIVENESS.
[2020-07-25 22:00] VITALS: BP 132/77; PULSE 70; RESP 18; TEMP 36.6; O2SAT 97
[2020-07-26 06:00] VITALS: BP 122/75; PULSE 61; RESP 16; TEMP 36.5; O2SAT 96
[2020-07-26] MEDS: folic acid 1 mg Tablet PO (08:19)
[2020-07-26] MEDS: PARoxetine 20 mg Tablet PO (08:19)
[2020-07-26] MEDS: multivitamin therapeutic Tablet 1 TAB PO (08:19)
[2020-07-26] MEDS: docusate sodium 100 mg Capsule PO (08:19)
[2020-07-26] MEDS: thiamine 100 mg Tablet PO (08:19)
[2020-07-26] MEDS: nicotine 2 mg Gum BUCCAL ×3 (11:45→20:27)
[2020-07-26 13:11] VITALS: BP 132/78; PULSE 91; RESP 16; TEMP 37.3; O2SAT 96
--- NOTE | 2020-07-26 18:47 | PM.NPN ---
Subjective NPU Subjective: Interval history: Patient indicates that he still has voices but they don't bother him like they used to now that he is on olanzapine 15 mg by mouth daily. The [employer] made him feel like he wanted to hide out in his room, so he stopped. The Paxil 20 mg by mouth daily has helped his mood. He feels he needs to be in a recovery program and is asking for referral to a rehabilitation facility. I told him our discharge planners could work with him on this tomorrow Medications: Reviewed: Yes Medication Review Details: Current Medications Acetaminophen (Tylenol) 650 mg PO Q4H PRN PRN Reason: MILD PAIN Benztropine Mesylate (Cogentin) 1 mg PO BID PRN PRN Reason: Mild Extrapyramidal symptoms Camphor/Menthol/Phenol (Blistex) 1 applic TOPICAL Q1H PRN PRN Reason: DRYNESS Diphenhydramine HCl (Benadryl) 50 mg IM ONCE PRN PRN Reason: Severe Extrapyramidal Symptoms Diphenhydramine HCl (Benadryl) 50 mg IM Q4H PRN PRN Reason: Severe Aggression Docusate Sodium (Colace) 100 mg PO DAILY [facility] Last Admin: 07/26/20 08:19 Dose: 100 mg Documented by: Folic Acid (Folic Acid) 1 mg PO DAILY [facility] Last Admin: 07/26/20 08:19 Dose: 1 mg Documented by: Hydroxyzine Pamoate (Vistaril) 50 mg PO Q6H PRN PRN Reason: ANXIETY Last Admin: 07/25/20 20:39 Dose: 50 mg Documented by: Loperamide HCl (Imodium Capsule) 2 mg PO Q6H PRN PRN Reason: DIARRHEA Lorazepam (Ativan) 2 mg IM Q4H PRN PRN Reason: Severe Aggression Multivitamins Therapeutic (Multivitamin Tab) 1 tab PO DAILY [facility] Last Admin: 07/26/20 08:19 Dose: 1 tab Documented by: Nicotine (Nicoderm 21 Mg Patch) 1 patch TRANSDERMA DAILY PRN PRN Reason: NICOTINE WITHDRAWAL Nicotine Polacrilex (Nicorette) 2 mg BUCCAL Q2H PRN PRN Reason: NICOTINE WITHDRAWAL Last Admin: 07/26/20 15:34 Dose: 2 mg Documented by: Olanzapine (Zyprexa) 15 mg PO BEDTIME [facility] Last Admin: 07/25/20 20:39 Dose: 15 mg Documented by: Olanzapine (Zyprexa Zydis) 5 mg PO Q4H PRN PRN Reason: Agitation/Psychosis Ondansetron HCl (Zofran) 4 mg PO Q6H PRN PRN Reason: NAUSEA AND VOMITING Paroxetine HCl (Paxil) 20 mg PO DAILY [facility] Last Admin: 07/26/20 08:19 Dose: 20 mg Documented by: Thiamine Mononitrate (Vitamin B-1) 100 mg PO DAILY [facility] Last Admin: 07/26/20 08:19 Dose: 100 mg Documented by: Mental Status Exam MSE Comments: The patient is an alert male appearing his stated age. He provides no eye contact throughout the interview. He appears to be a reliable source of information which is consistent with that in his chart. We have no way of knowing whether he is being reliable with regard to the events following his discharge from this unit a few days ago. He is in no apparent physical distress. He is in emotional distress. Appearance: hygiene is fair; no gross neurological deficits. Gait is unremarkable; AIMS=0 Speech: Speech is of normal rate and rhythm and easily understood. Thought processes are abstract. Judgment is not adequate for safety. Insight is fair. Associations: intact Psychotic processes: There is no indication of guarding or paranoia. There is no attention to internal stimuli. He acknowledges auditory hallucinations. Problem solving skills are adequate for safety. Orientation: The patient is oriented to person, place time and situation. Memory: no deficits noted in immediate, intermediate, or remote spheres. Attention: The patient is alert and interpersonally engaged. Language: Verbalizations are coherent. Fund of knowledge: Fund of knowledge is adequate. Affect/Mood: Affect is consistent with a depressed mood. The patient denies suicidal or homicidal ideation, plan or intent Affective range is appropriate. Psychosis: perception unimpaired except through cognitive distortion; reality testing intact. Vitals/I&O/Wt Last Vital Signs Temp 99.1 F 07/26/20 13:11 Pulse 91 07/26/20 13:11 Resp 16 07/26/20 13:11 BP 132/78 07/26/20 13:11 Pulse Ox 96 07/26/20 13:11 Weight last 48 hrs Weight 200 lb 6 oz Data NPU : 07/24/20 12:39 07/24/20 12:39 Involuntary Hold Information 96 Hour Hold: 96 Hour Involuntary Admission: No Attestations NPU Medical Necessity Statement*: I anticipate 7-10 midnights additional stay. Coding Level of Care Code Acute Front End Driver for Zeb Adorno
[2020-07-26] MEDS: trazodone 50 mg Tablet PO (20:27)
[2020-07-26] MEDS: OLANZapine 5 mg TABLET 15 MG PO (20:27)
[2020-07-26 21:14] VITALS: BP 115/75; PULSE 77; RESP 17; TEMP 37.2; O2SAT 96
[2020-07-26] MEDS: hyDROXYzine 25 mg Capsule 50 MG PO (21:27)
[2020-07-27 06:00] VITALS: BP 115/71; PULSE 64; RESP 16; TEMP 37; O2SAT 98
[2020-07-27] MEDS: thiamine 100 mg Tablet PO (08:08)
[2020-07-27] MEDS: multivitamin therapeutic Tablet 1 TAB PO (08:08)
[2020-07-27] MEDS: PARoxetine 20 mg Tablet PO (08:08)
[2020-07-27] MEDS: docusate sodium 100 mg Capsule PO (08:08)
[2020-07-27] MEDS: folic acid 1 mg Tablet PO (08:09)
[2020-07-27] MEDS: nicotine 2 mg Gum BUCCAL ×3 (10:16→21:07)
--- NOTE | 2020-07-27 13:35 | NPU.GN ---
Arvind spoke up when asked to but remained quiet throughout most of the group session. He looked down at the ground and table during the session and did not make eye contact, even when speaking to dirt contractor.
[2020-07-27 14:00] VITALS: BP 116/75; PULSE 75; RESP 18; TEMP 37.3; O2SAT 96
--- NOTE | 2020-07-27 16:34 | P.PN_ITS ---
Subjective NPU Subjective: Interval history: The patient says that he is doing fairly well on his current pharmacologic regimen. He continues to complain about anxiety and discussed buspirone with him and we agreed to initiate titration thereof. He is eager to get into a rehab program and worries about logistical issues relating to that but otherwise he is doing well. Medications: Reviewed: Yes Medication Review Details: Current Medications Acetaminophen (Tylenol) 650 mg PO Q4H PRN PRN Reason: MILD PAIN Benztropine Mesylate (Cogentin) 1 mg PO BID PRN PRN Reason: Mild Extrapyramidal symptoms Buspirone HCl (Buspar) 5 mg PO BID [facility] Camphor/Menthol/Phenol (Blistex) 1 applic TOPICAL Q1H PRN PRN Reason: DRYNESS Diphenhydramine HCl (Benadryl) 50 mg IM ONCE PRN PRN Reason: Severe Extrapyramidal Symptoms Diphenhydramine HCl (Benadryl) 50 mg IM Q4H PRN PRN Reason: Severe Aggression Docusate Sodium (Colace) 100 mg PO DAILY [facility] Last Admin: 07/27/20 08:08 Dose: 100 mg Documented by: Folic Acid (Folic Acid) 1 mg PO DAILY [facility] Last Admin: 07/27/20 08:09 Dose: 1 mg Documented by: Hydroxyzine Pamoate (Vistaril) 50 mg PO Q6H PRN PRN Reason: ANXIETY Last Admin: 07/26/20 21:27 Dose: 50 mg Documented by: Loperamide HCl (Imodium Capsule) 2 mg PO Q6H PRN PRN Reason: DIARRHEA Lorazepam (Ativan) 2 mg IM Q4H PRN PRN Reason: Severe Aggression Multivitamins Therapeutic (Multivitamin Tab) 1 tab PO DAILY [facility] Last Admin: 07/27/20 08:08 Dose: 1 tab Documented by: Nicotine (Nicoderm 21 Mg Patch) 1 patch TRANSDERMA DAILY PRN PRN Reason: NICOTINE WITHDRAWAL Nicotine Polacrilex (Nicorette) 2 mg BUCCAL Q2H PRN PRN Reason: NICOTINE WITHDRAWAL Last Admin: 07/27/20 15:29 Dose: 2 mg Documented by: Olanzapine (Zyprexa) 15 mg PO BEDTIME [facility] Last Admin: 07/26/20 20:27 Dose: 15 mg Documented by: Olanzapine (Zyprexa Zydis) 5 mg PO Q4H PRN PRN Reason: Agitation/Psychosis Ondansetron HCl (Zofran) 4 mg PO Q6H PRN PRN Reason: NAUSEA AND VOMITING Paroxetine HCl (Paxil) 20 mg PO DAILY [facility] Last Admin: 07/27/20 08:08 Dose: 20 mg Documented by: Thiamine Mononitrate (Vitamin B-1) 100 mg PO DAILY [facility] Last Admin: 07/27/20 08:08 Dose: 100 mg Documented by: Trazodone HCl (Desyrel) 50 mg PO BEDTIME PRN PRN Reason: SLEEP Last Admin: 07/26/20 20:27 Dose: 50 mg Documented by: Mental Status Exam MSE Comments: The patient is an alert male appearing his stated age. He provides little eye contact throughout the interview. He is in emotional distress. Hygiene is fair; no gross neurological deficits. Gait is unremarkable; AIMS=0 Speech: Speech is of normal rate and rhythm and easily understood. Thought processes are abstract. Judgment is not adequate for safety. Insight is fair. Associations: intact Psychotic processes: There is no indication of guarding or paranoia. There is no attention to internal stimuli but he acknowledges auditory hallucinations. Problem solving skills are adequate for safety. Orientation: The patient is oriented to person, place time and situation. Memory: no deficits noted in immediate, intermediate, or remote spheres. Attention: The patient is alert and interpersonally engaged. Language: Verbalizations are coherent. Fund of knowledge: Fund of knowledge is adequate. Affect/Mood: Affect is consistent with a depressed mood. The patient denies suicidal or homicidal ideation, plan or intent Affective range is appropriate. Vitals/I&O/Wt Last Vital Signs Temp 99.1 F 07/27/20 14:00 Pulse 75 07/27/20 14:00 Resp 18 07/27/20 14:00 BP 116/75 07/27/20 14:00 Pulse Ox 96 07/27/20 14:00 Weight last 48 hrs Weight 200 lb 6 oz Data NPU : 07/24/20 12:39 07/24/20 12:39 A&P Assessment and plan (1) Adjustment disorder with depressed mood: Status: Acute (2) Homeless single person: Status: Acute Involuntary Hold Information 96 Hour Hold: 96 Hour Involuntary Admission: No Attestations NPU Medical Necessity Statement*: I anticipate 2-3 additional midnights. 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
[2020-07-27] MEDS: BuSPIRONE 5 mg Tablet PO (17:35)
[2020-07-27 19:45] VITALS: BP 116/79; PULSE 71; RESP 16; TEMP 37.2; O2SAT 99
[2020-07-27] MEDS: OLANZapine 5 mg TABLET 15 MG PO (19:56)
[2020-07-27] MEDS: hyDROXYzine 25 mg Capsule 50 MG PO (19:56)
[2020-07-27] MEDS: trazodone 50 mg Tablet PO (19:56)
[2020-07-28 05:59] VITALS: BP 128/87; PULSE 71; RESP 16; TEMP 37; O2SAT 96
[2020-07-28] MEDS: thiamine 100 mg Tablet PO (08:16)
[2020-07-28] MEDS: folic acid 1 mg Tablet PO (08:16)
[2020-07-28] MEDS: BuSPIRONE 5 mg Tablet PO ×2 (08:16→16:44)
[2020-07-28] MEDS: multivitamin therapeutic Tablet 1 TAB PO (08:16)
[2020-07-28] MEDS: PARoxetine 20 mg Tablet PO (08:16)
[2020-07-28] MEDS: docusate sodium 100 mg Capsule PO (08:16)
[2020-07-28] MEDS: nicotine 2 mg Gum BUCCAL ×4 (11:45→20:21)
--- NOTE | 2020-07-28 13:45 | NPU.GN ---
Arvind only spoke when asked to but he was truthful and elaborate with his answers. He spoke about wanting to stay in the area but feeling like he won't have a choice but to go to [place].
[2020-07-28 14:00] VITALS: BP 130/82; PULSE 98; RESP 20; TEMP 35.8; O2SAT 96
--- NOTE | 2020-07-28 16:33 | PM.NPN ---
Subjective NPU Subjective: Interval history: The patient continues to experience improvement on pharmacotherapy and in the [facility]. He is pending transfer to [facility] with concomitant outpatient rehab program. He is eager to avoid any more drinking. He has had enough. Medications: Reviewed: Yes Medication Review Details: Current Medications Acetaminophen (Tylenol) 650 mg PO Q4H PRN PRN Reason: MILD PAIN Benztropine Mesylate (Cogentin) 1 mg PO BID PRN PRN Reason: Mild Extrapyramidal symptoms Buspirone HCl (Buspar) 5 mg PO BID [facility] Last Admin: 07/28/20 08:16 Dose: 5 mg Documented by: Camphor/Menthol/Phenol (Blistex) 1 applic TOPICAL Q1H PRN PRN Reason: DRYNESS Diphenhydramine HCl (Benadryl) 50 mg IM ONCE PRN PRN Reason: Severe Extrapyramidal Symptoms Diphenhydramine HCl (Benadryl) 50 mg IM Q4H PRN PRN Reason: Severe Aggression Docusate Sodium (Colace) 100 mg PO DAILY [facility] Last Admin: 07/28/20 08:16 Dose: 100 mg Documented by: Folic Acid (Folic Acid) 1 mg PO DAILY [facility] Last Admin: 07/28/20 08:16 Dose: 1 mg Documented by: Hydroxyzine Pamoate (Vistaril) 50 mg PO Q6H PRN PRN Reason: ANXIETY Last Admin: 07/27/20 19:56 Dose: 50 mg Documented by: Loperamide HCl (Imodium Capsule) 2 mg PO Q6H PRN PRN Reason: DIARRHEA Multivitamins Therapeutic (Multivitamin Tab) 1 tab PO DAILY [facility] Last Admin: 07/28/20 08:16 Dose: 1 tab Documented by: Nicotine (Nicoderm 21 Mg Patch) 1 patch TRANSDERMA DAILY PRN PRN Reason: NICOTINE WITHDRAWAL Nicotine Polacrilex (Nicorette) 2 mg BUCCAL Q2H PRN PRN Reason: NICOTINE WITHDRAWAL Last Admin: 07/28/20 15:38 Dose: 2 mg Documented by: Olanzapine (Zyprexa) 15 mg PO BEDTIME [facility] Last Admin: 07/27/20 19:56 Dose: 15 mg Documented by: Olanzapine (Zyprexa Zydis) 5 mg PO Q4H PRN PRN Reason: Agitation/Psychosis Ondansetron HCl (Zofran) 4 mg PO Q6H PRN PRN Reason: NAUSEA AND VOMITING Paroxetine HCl (Paxil) 20 mg PO DAILY [facility] Last Admin: 07/28/20 08:16 Dose: 20 mg Documented by: Thiamine Mononitrate (Vitamin B-1) 100 mg PO DAILY [facility] Last Admin: 07/28/20 08:16 Dose: 100 mg Documented by: Trazodone HCl (Desyrel) 50 mg PO BEDTIME PRN PRN Reason: SLEEP Last Admin: 07/27/20 19:56 Dose: 50 mg Documented by: Mental Status Exam MSE Comments: This is a 35-year-old male who presents at his stated age. He is clean and neat. Mood is much improved and is far less anxious. Affect remains somewhat blunted and he continues to avoid eye contact, which may reflect some schizoid tendencies. Nonetheless, thought processes are integrated and free of any racing, blocking or looseness of association. There is no overt evidence of psychosis, such as but not limited to hallucinations, delusions or ideas of reference. Speech is of normal rate and volume without dysarthria, aprosody or pressure. The patient denies suicidal or homicidal ideation, plan or intent. Cognitive functions are adequate for safety. Insight and judgment are strengthening. He is eager to enter recovery. Vitals/I&O/Wt Last Vital Signs Temp 96.5 F L 07/28/20 14:00 Pulse 98 07/28/20 14:00 Resp 20 H 07/28/20 14:00 BP 130/82 07/28/20 14:00 Pulse Ox 96 07/28/20 14:00 Data NPU : 07/24/20 12:39 07/24/20 12:39 A&P Assessment and plan (1) Homeless single person: Resolution of this will be part of his transfer to the [facility] residence while pursuing sobriety. Status: Resolved (2) Alcohol use disorder: Status: Chronic (3) Adjustment disorder with depressed mood: Pharmacotherapy and milieu have effectuated significant improvement. Status: Acute Involuntary Hold Information 96 Hour Hold: 96 Hour Involuntary Admission: No Attestations NPU Medical Necessity Statement*: I anticipate 3-5 additional midnights. Time Spent in Patient Care: Greater than 35 minutes (>than 50% of time spent in counselling and/or direct pt care on unit). 40 minutes Coding Level of Care Code Acute Tile Burner for Chg Fwd Diagnoses Homeless single person Z59.0 Alcohol use disorder Adjustment disorder with depressed mood F43.21
--- NOTE | 2020-07-28 20:08 | PC.NURSE ---
PATIENT IS COOPERATIVE AND WATCHING TELEVISION IN THE DAYROOM. HE REQUESTED MEDICATION FOR ANXIETY AND SLEEP THIS EVENING. NURSE IMAN NOTIFIED.
[2020-07-28] MEDS: OLANZapine 5 mg TABLET 15 MG PO (20:20)
[2020-07-28] MEDS: hyDROXYzine 25 mg Capsule 50 MG PO (20:20)
[2020-07-28] MEDS: trazodone 50 mg Tablet PO (20:21)
[2020-07-28] MEDS: acetaminophen 325 mg Tablet 650 MG PO (21:04)
[2020-07-28 22:00] VITALS: BP 124/80; PULSE 85; RESP 16; TEMP 37.2; O2SAT 96
[2020-07-29 05:48] VITALS: BP 106/71; PULSE 68; RESP 18; TEMP 36.8; O2SAT 96
[2020-07-29] MEDS: docusate sodium 100 mg Capsule PO (07:58)
[2020-07-29] MEDS: multivitamin therapeutic Tablet 1 TAB PO (07:58)
[2020-07-29] MEDS: BuSPIRONE 5 mg Tablet PO ×2 (07:58→20:45)
[2020-07-29] MEDS: thiamine 100 mg Tablet PO (07:58)
[2020-07-29] MEDS: PARoxetine 20 mg Tablet PO (07:58)
[2020-07-29] MEDS: folic acid 1 mg Tablet PO (07:58)
[2020-07-29] MEDS: nicotine 2 mg Gum BUCCAL ×4 (07:59→19:14)
--- NOTE | 2020-07-29 11:29 | P.PN_ITS ---
Subjective NPU Subjective: Interval history: The patient continues to improve in [facility] and to strengthen his commitment to enter recovery. We are attempting to get a recovery program suitable to his needs. There is no doubt that, were he to go out on the streets, he was very quickly relapse. Medications: Reviewed: Yes Medication Review Details: Current Medications Acetaminophen (Tylenol) 650 mg PO Q4H PRN PRN Reason: MILD PAIN Last Admin: 07/28/20 21:04 Dose: 650 mg Documented by: Benztropine Mesylate (Cogentin) 1 mg PO BID PRN PRN Reason: Mild Extrapyramidal symptoms Buspirone HCl (Buspar) 5 mg PO BID [facility] Last Admin: 07/29/20 07:58 Dose: 5 mg Documented by: Camphor/Menthol/Phenol (Blistex) 1 applic TOPICAL Q1H PRN PRN Reason: DRYNESS Diphenhydramine HCl (Benadryl) 50 mg IM ONCE PRN PRN Reason: Severe Extrapyramidal Symptoms Diphenhydramine HCl (Benadryl) 50 mg IM Q4H PRN PRN Reason: Severe Aggression Docusate Sodium (Colace) 100 mg PO DAILY [facility] Last Admin: 07/29/20 07:58 Dose: 100 mg Documented by: Folic Acid (Folic Acid) 1 mg PO DAILY [facility] Last Admin: 07/29/20 07:58 Dose: 1 mg Documented by: Hydroxyzine Pamoate (Vistaril) 50 mg PO Q6H PRN PRN Reason: ANXIETY Last Admin: 07/28/20 20:20 Dose: 50 mg Documented by: Loperamide HCl (Imodium Capsule) 2 mg PO Q6H PRN PRN Reason: DIARRHEA Multivitamins Therapeutic (Multivitamin Tab) 1 tab PO DAILY [facility] Last Admin: 07/29/20 07:58 Dose: 1 tab Documented by: Nicotine (Nicoderm 21 Mg Patch) 1 patch TRANSDERMA DAILY PRN PRN Reason: NICOTINE WITHDRAWAL Nicotine Polacrilex (Nicorette) 2 mg BUCCAL Q2H PRN PRN Reason: NICOTINE WITHDRAWAL Last Admin: 07/29/20 07:59 Dose: 2 mg Documented by: Olanzapine (Zyprexa) 15 mg PO BEDTIME [facility] Last Admin: 07/28/20 20:20 Dose: 15 mg Documented by: Olanzapine (Zyprexa Zydis) 5 mg PO Q4H PRN PRN Reason: Agitation/Psychosis Ondansetron HCl (Zofran) 4 mg PO Q6H PRN PRN Reason: NAUSEA AND VOMITING Paroxetine HCl (Paxil) 20 mg PO DAILY [facility] Last Admin: 07/29/20 07:58 Dose: 20 mg Documented by: Thiamine Mononitrate (Vitamin B-1) 100 mg PO DAILY [facility] Last Admin: 07/29/20 07:58 Dose: 100 mg Documented by: Trazodone HCl (Desyrel) 50 mg PO BEDTIME PRN PRN Reason: SLEEP Last Admin: 07/28/20 20:21 Dose: 50 mg Documented by: Mental Status Exam MSE Comments: This is a 35-year-old male who presents at his stated age. He is clean and neat. Mood is much improved and is far less anxious. Affect remains somewhat blunted and he occasionally makes eye contact, which may reflect some improvement. Nonetheless, thought processes are integrated and free of any racing, blocking or looseness of association. There is no overt evidence of psychosis, such as but not limited to hallucinations, delusions, ideas of reference, etc. Speech is of normal rate and volume without dysarthria, aprosody or pressure. The patient denies suicidal or homicidal ideation, plan or intent. Cognitive functions are adequate for safety. Insight and judgment are strengthening. He is eager to enter recovery. Vitals/I&O/Wt Last Vital Signs Temp 98.2 F 07/29/20 05:48 Pulse 68 07/29/20 05:48 Resp 18 07/29/20 05:48 BP 106/71 07/29/20 05:48 Pulse Ox 96 07/29/20 05:48 Data NPU : 07/24/20 12:39 07/24/20 12:39 A&P Assessment and plan (1) Homeless single person: The patient will go to a residential treatment program, once he will be discharged to a facility Status: Resolved (2) Alcohol use disorder: The patient is pending referral to a recovery program Status: Chronic (3) Adjustment disorder with depressed mood: Mood is greatly improved. Pharmacotherapy and milieu will continue Status: Acute Involuntary Hold Information 96 Hour Hold: 96 Hour Involuntary Admission: No Attestations NPU Medical Necessity Statement*: I anticipate 2 midnights additional stay Time Spent in Patient Care: 16 - 35 minutes (>than 50% of time spent in counselling and/or direct pt care on unit) . 30 minutes Coding Level of Care Code Acute Senior Digital Designer for Chg Fwd Diagnoses Homeless single person Z59.0 Alcohol use disorder Adjustment disorder with depressed mood F43.21
--- NOTE | 2020-07-29 13:32 | NPU.GN ---
Arvind appeared to be in good spirits at Group this afternoon. Initially, I had to prompt him to participate but once he spoke up then, he seemed comfortable speaking up on his own. He provided good feedback. When Group resumed (and it was only him and I), he spoke about probably going to a nursing home in [place]. He wishes he could stay around here but we talked about all of the resources and possibilities he could be presented with in that area. We spoke about positive mindset and how much that can help on the toughest days. Arvind seemed to really take in what we've talked about in Group.
[2020-07-29 14:00] VITALS: BP 119/82; PULSE 94; RESP 20; TEMP 36.9; O2SAT 93
[2020-07-29 20:40] VITALS: BP 119/74; PULSE 81; RESP 18; TEMP 36.5; O2SAT 98
[2020-07-29] MEDS: OLANZapine 5 mg TABLET 15 MG PO (20:45)
[2020-07-29] MEDS: trazodone 50 mg Tablet PO (20:45)
[2020-07-29] MEDS: hyDROXYzine 25 mg Capsule 50 MG PO (20:45)
[2020-07-30 06:00] VITALS: BP 128/81; PULSE 67; RESP 18; TEMP 36.6; O2SAT 98
[2020-07-30] MEDS: docusate sodium 100 mg Capsule PO (08:10)
[2020-07-30] MEDS: multivitamin therapeutic Tablet 1 TAB PO (08:10)
[2020-07-30] MEDS: folic acid 1 mg Tablet PO (08:10)
[2020-07-30] MEDS: thiamine 100 mg Tablet PO (08:10)
[2020-07-30] MEDS: BuSPIRONE 5 mg Tablet PO (08:10)
[2020-07-30] MEDS: PARoxetine 20 mg Tablet PO (08:10)
[2020-07-30] MEDS: nicotine 2 mg Gum BUCCAL ×2 (09:40→12:43)
[2020-07-30 11:47] VITALS: BP 128/81; PULSE 67; RESP 18; TEMP 36.6; O2SAT 98
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
== END 2020-07-30 13:31 | disposition home or self-care (01) | DRG 881 ==
LOC: ER 14:15 → NP 14:35
PROVIDERS: Emergency Medicine; Registered Nurse; Admitting Provider Psychiatry & Neurology Psychiatry; Visit Provider Psychiatry & Neurology Psychiatry
DX: F43.21 Adjustment disorder with depressed mood (principal); R45.851 Suicidal ideations; Z87.820 Personal history of traumatic brain injury; F63.9 Impulse disorder, unspecified; F10.229 Alcohol dependence with intoxication, unspecified; Z91.14 Patient's other noncompliance with medication regimen; Z59.0 Homelessness
CPT/HCPCS: 12345; 36415; 80053; 80306; 80307; 81003; 84443; 85025; 99284